=== PATIENT | male | born 1935 | race Caucasian/White ===

== ENCOUNTER 2024-07-17 02:39 | Inpatient (IN) | payer OTHER, SELFPAY ==
[2024-07-16 23:28] VITALS: BP 184/74
--- NOTE | 2024-07-16 23:33 | ED.GENMED ---
History of Present Illness
General
Chief Complaint: Breathing Problem
Source: patient and ambulance crew
Exam Limitations: none
Time Seen by Provider: 07/16/24 23:31
Nursing documentation reviewed up to this point in time: agreed with
History of Present Illness
History of Present Illness:
88-year-old male presents emergency department complaining of shortness of breath, he vomited a piece of broccoli and appeared to aspirate. He was placed on 3 L nasal cannula and transported.
Past History
Past History
ED Past Medical History: HTN, Hypercholesterolemia and Other (dementia)
ED Past Surgical History: None
Social History
Tobacco: Non-smoker
Alcohol: Former
Drug: None
Living: assisted living
Review of Systems
Review of Systems
Allergies reviewed?: Yes
Unable to obtain full review of systems at this time due to: dementia
All Other Systems: Not applicable
Respiratory: Reports cough and trouble breathing
ABD/GI: Reports vomiting
Phy Exam
Physical Exam
Physical Exam:
Physical Exam
General: Moderate respiratory distress, appears uncomfortable, vomit on short
Neck: supple. no meningeal signs. normal posterior pharynx
Heart: s1/s2 regular rate and rhythm, no murmur. equal radial
pulses.
HEENT: Pupils equal round reactive to light, EOMI
Lungs: Moderate respiratory distress. Rhonchi bilaterally
Abdomen: normal bowel sounds. not tender. no CVAT
Neuro: alert and oriented to person. no focal neurological deficits cranial nerves II through XII intact
Skin: no rash
Psychiatric: well kept. interactive and cooperative
Extremities: no edema. no calf tenderness. negative homans. good distal pulses
Scores
Heart Failure Risk
Heart Failure Risk Score: Not Applicable
Course
Orders/Labs/Results
Orders:
Orders
09/11/24 23:31
Cardiac Monitoring- Treatment ONCE
IV Insert/Care/Rem.- Treatment PRN
O2 Therapy [RESP] Stat
Nasal Cannula Liter Flow: 3 LPM
Titrate/Wean O2 to maintain O2 sat greater than (%): 93
Pulse Ox/cont/shift [RESP] Stat
Quantity: 1
07/16/24 23:32
Electrocardiogram (*1) Stat
Reason for Study: Other
Other Reason for Exam: pneumonia
EKG- Treatment ONCE
07/16/24 23:33
CR Chest Portable - 1 View Urgent
Comment:
Reason For Exam: aspiration, short of breath
Reason Study Needs to be Portable: Unable to Transport
07/16/24 23:44
Complete Blood Count/With Diff Urgent
Comprehensive Metabolic Panel Urgent
Lactic Acid Q4H
Comment: CANCEL 2nd LACTIC ACID IF 1st LACTIC ACID IS LESS THAN 2
Blood Culture Urgent
RODRIGO Source: Blood/Venous
Specimen Description:
07/17/24 00:32
Piperacillin/Tazo 4.5 Gram [Zosyn] 4.5 gram in 100 ml IV NOW
07/17/24 00:45
Vancomycin [Vancocin] 2,000 mg 0.9% Sodium Chloride 500 ml [Nss] 500 ml IV NOW
07/17/24 00:54
Blood Culture Routine
RODRIGO Source: Blood/Venous
Specimen Description:
Date Specimen was Collected: 07/17/24
Time Specimen was Collected: 00:53
07/17/24 01:07
Admit/Transfer Patient As Directed
Co-Sign Provider:
Level of Care: Inpatient admission
Assign to:: Telemetry
Physician / Group: Ankur
Diagnosis: Aspiration Pneumonitis / Pneumonia
Reason for Telemetry: Arrhythmia
Date to Stop Telemetry: 07/20/24
Time to Stop Telemetry: 11:00
Reason for Hospitalization: Aspiration Pneumonitis / Pneumonia
Expected length of stay greater than two midnights?: Yes
ELOS- Estimated Length of Stay in days: 3
I certify the patient meets the requirements for IP care: Yes
PRN Pain Medication Management As Directed
May give lesser potent ordered pain med per pt: Yes
preference::
Protocol:: Medication orders for pain may be administered in a
manner that supports deferring to patient preference
when the pt is:
- Requesting an ordered lesser potent pain medication.
Least to most potent pain medications are defined
as: acetaminophen < NSAID < tramadol < opioids
(morphine, oxycodone, hydromorphone).
- Requesting a lesser dose of the same medication IF
ORDERED.
- Requesting a less intrusive route of administration
if both routes are prescribed by the provider (PO <
IV).
07/17/24 01:08
Code Status As Directed
Resuscitation Status: Limited DNR
Limited DNR: -No CPR
07/17/24 02:00
Flush (0.9% Sodium Chloride) [Flush (Nss)] See Dose Instructions IV PER PROTOCOL
07/20/24 11:00
DC Protocol for Telemetry ONCE
Abnormal Lab Results
07/16/24
23:44
WBC 14.6 H 10^3/uL
(4.8-10.8)
RBC 4.20 L 10^6/uL
(4.70-6.10)
Hgb 12.6 L g/dL
(13.0-18.0)
Hct 36.7 L %
(39.0-52.0)
Abs Immat Gran (auto) 0.1 H 10^3/uL
(0-0.05)
Absolute Neuts (auto) 12.6 H 10^3/uL
(1.4-6.5)
Absolute Lymphs (auto) 1.1 L 10^3/uL
(1.2-3.4)
Absolute Monos (auto) 0.8 H 10^3/uL
(0.1-0.6)
Neutrophils % 86.5 H %
(42.2-75.2)
Lymphocytes % 7.3 L %
(20.5-51.1)
Glucose 141 H mg/dl
(70-99)
07/16/24 23:44
07/16/24 23:44
Vital Signs
Initial and Last Documented VS:
Initial Vital Signs
Temp Pulse Resp BP Pulse Ox
98.8 F 72 19 184/74 94
07/16/24 23:28 07/16/24 23:28 07/16/24 23:28 07/16/24 23:28 07/16/24 23:28
Last Documented Vital Signs
Temp Pulse Resp BP Pulse Ox
98.8 F 79 23 146/62 91
07/16/24 23:28 07/17/24 02:00 07/17/24 02:00 07/17/24 02:00 07/17/24 02:00
MDM/Problems Addressed
Differential Diagnosis Includes:
Aspiration pneumonia, hypoxia
MDM/Problems Addressed:
88-year-old male with aspiration pneumonia. Admit to hospitalist.
Chronic conditions affecting care: HTN and Neurological disorder (Dementia)
Acute Exacerbation and/or Progression of Chronic Illness: HTN
*Radiology
Radiology exam reviewed: preliminary read by ED provider (Chest x-ray no acute findings)
*Pulse Oximetry
Patient hypoxic: yes
*EKG
Interpreted by ED Provider?: Yes
EKG Intrepretation Date: 07/16/24
EKG Intrepretation Time: 23:45
Interpretation: abnormal
Comparison EKG: changes noted
Heart Rate: 77
Rate: normal
Rhythm: sinus
[place]: normal axis
Interval: short VT
QRS Pattern: right bundle branch block
Ischemia: non-specific ST changes
*Olive Knocker Interpretation
Rate: normal
Interpretation: normal
Heart Rate: 75
Rhythm: sinus
*Critical Care Note
Total Time (30-74mins, 75-104mins- exclusive of procedures): Not Applicable
Data Reviewed
Further Testing Considered But Not Given:
ct chest not indicated
Patient Management
Social determinants of health affecting care: Living situation
Discussion with other providers: Hospitalist
Escalation/DeEscalation of care consider admission/obs:
admit not indicated
ED Attending Note
-
Portions of this chart may have been created with voice recognition software.� Occasional wrong word or��sound alike� substitutions may have occurred due to the inherent limitations of voice recognition software.
Discharge Plan
Departure
Patient Disposition: Admit
Date of Disposition: 07/17/24
Time of Disposition: 00:31
Admit to: IMU
Presentation/result/management discussed w/ accepting MD/DO: Hospitalist
Patient with high blood pressure during this ER visit?: Yes
Condition: Fair
Discharge Problem:
Aspiration pneumonia due to food (regurgitated)
Prescriptions:
No Action
losartan 50 mg Tablet
50 mg PO DAILY
furosemide 40 mg Tablet
40 mg PO DAILY
acetaminophen [Tylenol Extra Strength] 500 mg Tablet
1,000 mg PO BIDPRN PRN (Reason: mild pain)
acetaminophen [Tylenol Extra Strength] 500 mg Tablet
1,000 mg PO DAILY
glimepiride [Amaryl] 2 mg Tablet
2 mg PO DAILY
tamsulosin 0.4 mg Capsule
0.4 mg PO HS
lidocaine 5 % Adhesive Patch,Medicated
1 patch TOPICAL DAILY
calcium polycarbophil [FiberCon] 625 mg Tablet
625 mg PO HS
povidone-iodine [Betadine Swabsticks] 10 % Swab
1 applic TOPICAL DAILY
lactase [Lactaid] 3,000 unit Tablet
3,000 unit PO BID
divalproex [Depakote Sprinkles] 125 mg Capsule, Delayed Rel Sprinkle
125 mg PO DAILY
divalproex [Depakote Sprinkles] 125 mg Capsule, Delayed Rel Sprinkle
250 mg PO HS
repaglinide [Prandin] 1 mg Tablet
3 mg PO BID
escitalopram oxalate [Lexapro] 10 mg Tablet
10 mg PO HS
senna 8.6 mg Capsule
8.6 mg PO DAILYPRN PRN (Reason: constipation)
Januvia 50 mg Tablet
50 mg PO DAILY
Balmex Adult Care 11.3 % Cream
1 applic TOPICAL BIDPRN PRN (Reason: buttocks, aletha area/inner thighs)
Gold Moraes Medicated Body 0.8 % Powder
1 ea TOPICAL DAILY
Eucerin Advanced Repair Cream
1 applic TOPICAL BID
Referrals:
UNKNOWN - PT DOES,NOT KNOW [Unknown Provider] -
Discharge Date and Time
Discharge Date/Time: 07/17/24 02:29
Print Language: BRITISH
[2024-07-16 23:34] VITALS: BP 184/74
[2024-07-16 23:38] VITALS: BMI 23.1
[2024-07-17] VITALS (11 sets, daily range): BP systolic 112–164; BP diastolic 58–71; BMI 23.0
[2024-07-17 00:02] LABS: % Basophils 0.2 % (0-2); % Eosinophils 0.3 % (0-6); % Immature Granulocytes 0.4 % (0-0.5); % Lymphocytes 7.3 % (20.5-51.1); % Monocytes 5.3 % (1.7-9.3); % Neutrophils 86.5 % (42.2-75.2); Absolute Eosinophils 0.1 10^3/uL (0-0.7); Absolute Immature Granulocytes 0.1 10^3/uL (0-0.05); Absolute Lymphocytes 1.1 10^3/uL (1.2-3.4); Absolute Monocytes 0.8 10^3/uL (0.1-0.6); Absolute Neutrophils 12.6 10^3/uL (1.4-6.5); Hematocrit 36.7 % (39.0-52.0); Hemoglobin 12.6 g/dL (13.0-18.0); Mean Corp Hgb Conc. 34.3 g/dL (33.0-37.0); Mean Corpuscular Volume 87.4 fL (80.0-94.0); Mean Platelet Volume 10.4 fL (7.4-10.4); Nucleated Red Blood Cells % 0 % (-); Platelet Count 283 10^3/uL (130-400); Red Cell Dist. Width 13.2 % (11.5-14.5); White Blood Cell Count 14.6 10^3/uL (4.8-10.8)
[2024-07-17 00:09] LABS: ALT (SGPT) 13 U/L (0-50); AST (SGOT) 19 U/L (17-59); Albumin 4.7 g/dl (3.5-5.0); Alkaline Phosphatase 83 U/L (38-126); Blood Urea Nitrogen 18 mg/dl (9-20); Calcium 9.6 mg/dl (8.4-10.2); Carbon Dioxide 29 mmol/L (22-30); Chloride 101 mmol/L (98-107); Estimated Creatinine Clearance 58 ml/min; Glucose 141 mg/dl (70-99); Potassium 4.2 mmol/L (3.5-5.1); Sodium 143 mmol/L (135-145); Total Bilirubin 0.7 mg/dl (0.2-1.3); Total Protein 7.9 g/dl (6.3-8.2); eGFR > 60.00
[2024-07-17 00:10] LABS: Lactic Acid 1.9 mmol/L (0.7-2.0)
[2024-07-17] MEDS: ZOSYN 100 IV (00:46)
--- NOTE | 2024-07-17 01:10 | HPS.HSE ---
Family Physician
-
Family Physician: Rebecca Henderson
Chief Complaint
-
Cough / Choking
History of Present Illness
Patient is an 88y M with PMH significant for senile dementia, hypertension and history of alcohol use disorder who presents to ED complaining of coughing / choking episode this evening. Patient is confused (as per baseline) and is unable to
relate details leading to his hospitalization. History obtained primarily from his son at the bedside. Per son, staff responded to call at [facility] to find patient coughing / choking in his apartment. He was eating ice cream at the time
staff arrived - though patient himself stated that he had been choking on broccoli. He was SOB and in some distress and was brought to the ED for further evaluation. In the ED, patient is mildly hypoxemic with SpO2 into the 80s on room air. He
has 'moist' cough that is poorly productive.
Son (who is a Speech Therapist) states no significant history of aspiration / dietary restrictions.
Patent has general decline due to dementia. He requires full assistance with all activities / ADLs. He falls about once per week - usually while trying to self-transfer from bed to wheelchair or vice versa.
Medical History
Past Medical History
Past Medical History: Reports Other
Additional Past Medical History:
Alcohol Use Disorder
Senile Dementia
Alcoholic Polyneuropathy
Hypertension
DM-II
BPH
Ambulatory Dysfunction
Lumbar DDD
Non-Melanoma Skin Cancer
Past Surgical History: Reports Other
Additional Past Surgical History:
Lumbar laminectomy x 2
Mohs Surgery
ORIF R Ankle
Social History
Tobacco: Former Smoker
Alcohol: Former
Drug: None
Living: Assisted Living
Family History
Family History: Not pertinent
Allergies / Home Medications
Allergies reflects when Allergies were last updated in [facility].
Home Medications with original date entered in [facility]
Allergy/Medication List:
Allergies
Allergy/AdvReac Type Severity Reaction Status Date / Time
No Known Allergies Allergy Verified 07/16/24 23:38
Home Medications
acetaminophen 500 mg tablet (Tylenol Extra Strength) 1,000 mg PO BIDPRN PRN mild pain 07/16/24
acetaminophen 500 mg tablet (Tylenol Extra Strength) 1,000 mg PO DAILY 07/16/24
calcium polycarbophil 625 mg tablet (FiberCon) 625 mg PO HS 07/16/24
divalproex 125 mg capsule,delayed release sprinkle (Depakote Sprinkles) 125 mg PO DAILY 07/16/24
divalproex 125 mg capsule,delayed release sprinkle (Depakote Sprinkles) 250 mg PO HS 07/16/24
emollient combination no.119 (Eucerin Advanced Repair topical cream) 1 applic topical BID b/l le 07/16/24
escitalopram oxalate 10 mg tablet (Lexapro) 10 mg PO HS 07/16/24
furosemide 40 mg tablet 40 mg PO DAILY 07/16/24
glimepiride 2 mg tablet 2 mg PO DAILY 07/16/24
lactase 3,000 unit tablet (Lactaid) 3,000 unit PO BID 07/16/24
lidocaine 5 % topical patch 1 patch topical DAILY left shoulder 07/16/24
losartan 50 mg tablet 50 mg PO DAILY 07/16/24
menthol 0.8 % topical powder (Gold Moraes Medicated Body) 1 ea topical DAILY upper back rash 07/16/24
povidone-iodine 10 % topical swab (Betadine Swabsticks) 1 applic topical DAILY right lower ankle 07/16/24
repaglinide 1 mg tablet 3 mg PO BID 07/16/24
sennosides 8.6 mg capsule (senna) 8.6 mg PO DAILYPRN PRN constipation 07/16/24
sitagliptin phosphate 50 mg tablet (Januvia) 50 mg PO DAILY 07/16/24
tamsulosin 0.4 mg capsule 0.4 mg PO HS 07/16/24
zinc oxide-vitamin B5-vit E 11.3% topical cream (Balmex Adult Care) 1 applic topical BIDPRN PRN buttocks, aletha area/inner thighs 07/16/24
Review of Systems
-
History Source: Patient and Family
A 12 point ROS was completed and negative except as noted: Yes
Constitutional: Denies Fever or Chills
EENT: Denies Sore Throat
Respiratory: Reports Cough and Trouble Breathing; Denies Hemoptysis
Cardiac: Denies Chest Pain or Palpitations
Abdomen/GI: Denies Abdominal Pain, Nausea, Vomiting or Diarrhea
: Denies Dysuria or Frequency
Musculoskeletal: Denies Joint Pain or Edema
Skin: Reports Other (Wound R ankle.)
Neurological: Denies Dizzy or Headache
Psych: Reports Dementia
Physical Exam
Vital Signs
Vital Signs
Temp Pulse Resp BP Pulse Ox
98.8 F 77 15 163/71 94
07/16/24 23:28 07/17/24 00:30 07/17/24 00:30 07/17/24 00:00 07/17/24 00:30
Physical Exam
General: Other (88y M in mild distress due to cough.)
HEENT: Other (Moist MM. Poor dentition. Moist cough productive of thin, clear mucous.)
Respiratory: Other (Coarse breath sounds predominately over the L base. No wheeze. Poorly effective cough.)
Cardiac: S1/S2, Regular Rhythm and Murmur (II/ LISA)
GI: Soft, Non Tender, Non Distended and Normal Bowel Sounds
Musculoskeletal: No Clubbing, No Cyanosis and No Edema
Skin: Other (Keratoses over the LE - R > L. Wound / rasied skin lesion lateral R ankle with surrounding erythema and mild induration. No active bleeding / discharge.)
Neuro: Awake and Alert; No Oriented
Laboratory Results
-
07/16/24 23:44
07/16/24 23:44
Laboratory Results
Lactic Acid Cancelled 07/17/24 03:45
Total Bilirubin 0.7 mg/dl (0.2-1.3) 07/16/24 23:44
AST 19 U/L (17-59) 07/16/24 23:44
ALT 13 U/L (0-50) 07/16/24 23:44
Alkaline Phosphatase 83 U/L (38-126) 07/16/24 23:44
Impression/Plan
-
A/P: Patient is an 88y M with PMH significant for HTN, DM-II and dementia who presents to ED for evaluation following coughing / choking episode.
Aspiration Pneumonitis +/- Pneumonia
Acute Hypoxemic respiratory Insufficiency secondary to the above
- Admit for further evaluation and treatment.
- Witnessed episode of coughing / choking while eating this evening.
- Hypoxemia in the ED with moist, weak cough and congested throat / voice.
- CXR with ? L base opacity - correlates with coarse BS on exam.
- IV abx with Zosyn for now.
- Aspiration precautions.
- Nebs / supportive care, supplemental O2, etc.
- Formal Speech evaluation.
- Follow fever curve.
- Follow for clinical improvement.
RLE Wound
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
- Wound Care evaluation for local care recommendations.
- On Zosyn as noted above.
- Follow for changes.
Benign Hypertension
- Stable. Hold PO medications acutely.
- Resume once stable for POs.
DM-II
- Stable. Hold PO medications acutely.
- Follow glucose and cover with SSI as needed.
- Update A1C.
BPH
- Stable. Bladder scan protocol.
History of Alcohol Use Disorder
Peripheral Polyneuropathy
Senile Dementia with Mood Disturbance
- Stable. Holding PO meds for now as noted above.
- Resume usual mood stabilizers once OK for PO intake.
- No alcohol in several years now.
DVT Prophylaxis: Subcut heparin
Code Status: ELIESER pan [facility] indicates DNR. With son at bedside, patient states that he would be in favor of intubation if needed - but no CPR in the event of cardiac arrest.
[2024-07-17] MEDS: VANCOCIN 540 MG IV (01:12)
--- NOTE | 2024-07-17 03:00 | PTCARENOTE ---
Patient admitted from ED. Patient AAO x1 which is baseline. Patient on RA. Placed on aspiration precautions with suction at bedside, performing PRN. Patient with frequent cough and thick, white sputum. HOB is elevated. Admission completed with
patient's son at bedside. Bed alarm is on. Patient has call rolle within reach.
[2024-07-17] MEDS: ZOSYN 50 IV ×3 (06:20→17:32)
[2024-07-17 06:27] LABS: Glucose - Point of Care 128 mg/dl (70-99)
[2024-07-17 07:57] LABS: Hematocrit 32.5 % (39.0-52.0); Hemoglobin 11.1 g/dL (13.0-18.0); Mean Corp Hgb Conc. 34.2 g/dL (33.0-37.0); Mean Corpuscular Hgb 30.9 pg (27.0-31.0); Mean Corpuscular Volume 90.5 fL (80.0-94.0); Mean Platelet Volume 10.6 fL (7.4-10.4); Platelet Count 219 10^3/uL (130-400); Red Blood Cell Count 3.59 10^6/uL (4.70-6.10); Red Cell Dist. Width 12.9 % (11.5-14.5); White Blood Cell Count 20.4 10^3/uL (4.8-10.8)
[2024-07-17 08:21] LABS: Blood Urea Nitrogen 17 mg/dl (9-20); Calcium 8.8 mg/dl (8.4-10.2); Carbon Dioxide 26 mmol/L (22-30); Chloride 105 mmol/L (98-107); Estimated Creatinine Clearance 64 ml/min; Glucose 128 mg/dl (70-99); Sodium 142 mmol/L (135-145); eGFR > 60.00
[2024-07-17] MEDS: DUONEB 3 ML INH ×4 (08:27→19:45)
[2024-07-17] MEDS: HEPARIN SC (08:55)
--- NOTE | 2024-07-17 09:00 | PTOTSP ---
Speech Language Pathology
Pt seen for clinical bedside swallow evaluation. Sitting upright upon arrival. Wet voice noted at rest, unable to clear with a cued cough. Set pt up to brush teeth. CLAIMS REPRESENTATIVE aided to achieve appropriate friction to clear bacteria from oral cavity.
With swish and spit of water post brushing, significant coughing episode noted with need for suctioning. After this, pt coughed up large amount of thick gillette secretions, which were suctioned from oral cavity. Clear vocal quality then noted.
Trialed ice chip x2 with immediate wet voice and severe coughing. Further P.O. trials deferred. Pt currently at high risk for aspiration.
Recommend:
(1) Strict NPO
(2) No oral meds
(3) Oral care 4x/day with suctioning as needed
(4) Not appropriate for Aspiration Risk Hydration Protocol (ARHP) at this time given intolerance of ice chips this date
(5) VSE when improvement noted (not yet appropriate)
(6) CLAIMS REPRESENTATIVE to continue to follow
[2024-07-17 09:19] LABS: Glycohemoglobin (HgbA1c) 6.2 % (4.0-5.6)
--- NOTE | 2024-07-17 10:33 | W.PN.HOSP.TC ---
Addendum entered and electronically signed by Leda Woodruff MD 07/17/24 16:00:
I saw and evaluated the patient independently. I reviewed the resident�s note and agree with findings and plan as documented by Dr. Larson.
GENERAL: chronically ill appearing male in no apparent distress
HEENT: NC/AT--thick secretions
HEART: regular rate and rhythm, +S1, +S2
LUNGS : clear to auscultation bilaterally
ABDOM: soft, nontender, nondistended, + bowel sounds
EXT: no cyanosis, clubbing, or edema
NEUROLOGIC: apparent dementia
SKIN: wound on right lower rivas (pics in chart)--raised area with surrounding back eschar and flaky skin
Aspiration pneumonitis +/- aspiration pneumonia--appears to be an acute problem (spoke with son at bedside who is a speech path at [employer])--patient not stable enough for video swallow--appreciate speech evaluation, continue ongoing evaluation, may
need VSE but unable to have today due to the thick secretions--patient does have leukocytosis of 20,000--continue Zosyn--chest x-ray without any florid infiltrates--also discussed with son possibility of the acute event which has worsened this issue
or cause this issue (i.e. stroke)--patient moved to IMU this morning 07/17/2024 for acute episode of desaturation, agitation with concern for needing deeper suctioning, appreciate pulmonary input--family wishes to defer on CAT scan or workup in that
regard at this time--if it is determined that patient is not safe for further oral intake and would need alternative means of feeding; would need further goals of care discussion with patient's son and family
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
care--already on Zosyn which may or may not be of benefit
Essential hypertension--Holding p.o. meds, will transition to IV
Type II diabetes mellitus--hold medications for now--continue sliding scale insulin--hemoglobin A1c 6.2
BPH--Stable--Bladder scan protocol
Senile dementia with mood disturbance--Patient became combative today, confused not oriented--much calmer now that son is at bedside
DVT prophylaxis: Subcu heparin
CODE STATUS: POLST fron NH indicates DNR. With son at bedside, patient states that he would be in favor of intubation if needed - but no CPR in the event of cardiac arrest.
Original Note:
Today's Communication/Plan
-
Transferred to ICU
Suction secretions, protecting airway
Assessment / Plan
Assessment / Plan
Assessment:
88 male past medical history dementia, hypertension, diabetes presented for evaluation of coughing/choking episode
Plan:
#Aspiration pneumonitis +/- aspiration pneumonia
Potentially aspiration pneumonia
Patient's WBC count trending upwards 20.4 this morning
Chest x-ray in the emergency department demonstrated bilateral minimal bibasilar opacities, likely representing subsegmental atelectasis
Patient reports coughing
Speech evaluated the patient and determined that he was gurgling on secretions, with significant coughing episodes they recommended patient be n.p.o.
Patient n.p.o.
Transition meds to IV if possible
Not ready for VSE will touch base with son who is also a speech therapist
Supportive care with supplemental O2, nebs
Aspiration precautions
IV Zosyn for now, day 2
Speech following
Follow fever curve
Follow WBC trend
#Right lower extremity wound
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
Wound care evaluation
Continue Zosyn
#Benign hypertension
Stable
Holding p.o. meds, will transition to IV
#Diabetes type 2
A1c 6.2
Transition meds to IV
Cover with sliding scale as needed
#BPH
Stable
Bladder scan protocol
#Senile dementia with mood disturbance
Patient combative today, confused not oriented
Patient refusing suctioning treatments, actively coughing and stating he wants to leave
Patient transferred to ICU
Will attempt to redirect patient, restraints and sedatives will be used as last resort
DVT prophylaxis: Subcu heparin
CODE STATUS: ELIESER fron NH indicates DNR. With son at bedside, patient states that he would be in favor of intubation if needed - but no CPR in the event of cardiac arrest.
Diet: N.p.o.
Anticipated Discharge: > 48 hours
Subjective/Interval History
-
Date of Service: July 17, 2024
Nurse reports episodes of agitation overnight
Patient acutely agitated this morning, requiring ICU transfer
Patient not protecting airway, requiring suction and not letting nurse to suction
Objective Data
-
Labs:
Laboratory Results
07/16/24 07/17/24
23:44 07:38
WBC 14.6 H 20.4 H
Hgb 12.6 L 11.1 L
Hct 36.7 L 32.5 L
Plt Count 283 219 D
Sodium 143 142
Potassium 4.2 4.0
Chloride 101 105
Carbon Dioxide 29 26
BUN 18 17
Creatinine 1.0 0.9
Glucose 141 H 128 H
Calcium 9.6 8.8
Total Bilirubin 0.7
AST 19
ALT 13
Alkaline Phosphatase 83
Vital Signs:
Vital Signs
Temp Pulse Resp BP Pulse Ox
98.4 F 64 16 128/66 98
07/17/24 07:45 07/17/24 08:28 07/17/24 08:28 07/17/24 07:45 07/17/24 08:28
Review of Systems
-
Unable to obtain full review of systems at this time due to: Dementia
Physical Exam
-
General: Respiratory Distress and Conversant
Respiratory: Other (Unable to auscultate due to receiving breathing treatment at time)
Cardiac: Regular Rhythm, S1/S2 and Murmur
GI: Soft, Nontender, Nondistended and Normal Bowel Sounds
Skin: Warm and Dry
Neuro: Awake; Negative Alert, Oriented or AO x 3
Psych: Calm, Agitated and Apparent Dementia; Negative Intact Judgement/Insight
Data Reviewed
-
Labs: Labs Reviewed by me and Discussed with Physician
--- NOTE | 2024-07-17 10:54 | CM ---
Call received from Maria E at [facility]. 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
Romaine was admitted early this am; admission dx aspiration pneumonia. CM will attempt to complete assessment with patient today.
--- NOTE | 2024-07-17 11:06 | CM ---
Addendum entered by Zohra Alcaraz 07/17/24 18:00:
Romaine was transferred to IMU today due to probable aspiration pneumonia/pneumonitis. Code status has been discussed. Per son he would be agreeable to intubation if needed, but no CPR.
CM will continue to follow.
Original Note:
Romaine is a resident of [facility], currently living in the assisted living area of the facility. He is non-ambulatory, uses a w/c and requires assist of 2 for transfers, has poor safety awareness, is impulsive with frequent falls. He needs set
up and assistance with meals.
Plan: CM to follow to coordinate return to AL at [facility] when medically ready.
--- NOTE | 2024-07-17 11:27 | CON.PUL ---
Consultation
Consultation Request
Date/Time Consultation Requested: 07/17/24
Date/Time Consultation Performed: 07/17/24
Performing Provider: Shahab
Reason for Consultation: Aspiration
Medical History
-
History of Present Illness:
Patient is an 88-year-old male with previous history of alcohol use disorder, dementia, hypertension, diabetes, ambulatory dysfunction presenting to ER for coughing, choking episode day prior to admission. Son provides most of the history and
states that patient has had difficulty with food in the past few weeks. He was found to be short of breath and brought in in distress, notably mildly hypoxemic with saturation in the 80s on room air. He has history of falls at facility as well.
Requires full assistance with all activities and ADLs. Admitted 07/16/2024, this a.m. developed acute aspiration event with hypoxemia. We are consulted for evaluation.
Past Medical History
Past Medical History: Other (see list below)
Social History
Tobacco: Non-smoker
Alcohol: Former
Drug: None
Family History
Family History: Reviewed & Not Pertinent
Allergies / Home Medications
Allergies
Allergy/AdvReac Type Severity Reaction Status Date / Time
No Known Allergies Allergy Verified 07/16/24 23:38
Home Medications
�Medication �Instructions �Recorded �Confirmed �Last Taken �Type
acetaminophen 500 mg tablet 1,000 mg PO BIDPRN PRN mild pain 07/16/24 07/16/24 Unknown History
(Tylenol Extra Strength)
acetaminophen 500 mg tablet 1,000 mg PO DAILY 07/16/24 07/16/24 Unknown History
(Tylenol Extra Strength)
calcium polycarbophil 625 mg 625 mg PO HS 07/16/24 07/16/24 Unknown History
tablet (FiberCon)
divalproex 125 mg capsule,delayed 125 mg PO DAILY 07/16/24 07/16/24 Unknown History
release sprinkle (Depakote
Sprinkles)
divalproex 125 mg capsule,delayed 250 mg PO HS 07/16/24 07/16/24 Unknown History
release sprinkle (Depakote
Sprinkles)
emollient combination no.119 1 applic topical BID b/l le 07/16/24 07/16/24 Unknown History
(Eucerin Advanced Repair topical
cream)
escitalopram oxalate 10 mg tablet 10 mg PO HS 07/16/24 07/16/24 Unknown History
(Lexapro)
furosemide 40 mg tablet 40 mg PO DAILY 07/16/24 07/16/24 Unknown History
glimepiride 2 mg tablet 2 mg PO DAILY 07/16/24 07/16/24 Unknown History
lactase 3,000 unit tablet (Lactaid) 3,000 unit PO BID 07/16/24 07/16/24 Unknown History
lidocaine 5 % topical patch 1 patch topical DAILY left shoulder 07/16/24 07/16/24 Unknown History
losartan 50 mg tablet 50 mg PO DAILY 07/16/24 07/16/24 Unknown History
menthol 0.8 % topical powder (Gold 1 ea topical DAILY upper back rash 07/16/24 07/16/24 Unknown History
Moraes Medicated Body)
povidone-iodine 10 % topical swab 1 applic topical DAILY right lower 07/16/24 07/16/24 Unknown History
(Betadine Swabsticks) ankle
repaglinide 1 mg tablet 3 mg PO BID 07/16/24 07/16/24 Unknown History
sennosides 8.6 mg capsule (senna) 8.6 mg PO DAILYPRN PRN constipation 07/16/24 07/16/24 Unknown History
sitagliptin phosphate 50 mg tablet 50 mg PO DAILY 07/16/24 07/16/24 Unknown History
(Januvia)
tamsulosin 0.4 mg capsule 0.4 mg PO HS 07/16/24 07/16/24 Unknown History
zinc oxide-vitamin B5-vit E 11.3% 1 applic topical BIDPRN PRN 07/16/24 07/16/24 Unknown History
topical cream (Balmex Adult Care) buttocks, aletha area/inner thighs
Review of Systems
-
History Source: Patient
All other systems: Negative unless noted
Vitals / Labs / Diagnostic Testing
Vital Signs
Temp Pulse Resp BP Pulse Ox
98.4 F 64 16 128/66 98
07/17/24 07:45 07/17/24 08:28 07/17/24 08:28 07/17/24 07:45 07/17/24 08:28
Lab Data
07/17/24 07:38
07/17/24 07:38
Diagnostic Testing:
Physical Exam
-
HEENT: Normocephalic, Anicteric and Moist Mucous Membranes
Cardiovascular: S1/S2 and Regular Rhythm
Respiratory: Wheeze (bilateral, slight), Rales and Non-Labored Respirations
GI: Soft, Non Distended and Non Tender
Neurology: Awake, Alert, Oriented (to self, confused on events), No Motor Deficits and Tremors
Skin: Warm, Dry and Good Color
General: Comfortable and Other (NAD)
Assessment
-
Patient is an 88-year-old male with previous history of alcohol use disorder, dementia, hypertension, diabetes, ambulatory dysfunction presenting to ER for coughing, choking episode day prior to admission. Son provides most of the history and
states that patient has had difficulty with food in the past few weeks. He was found to be short of breath and brought in in distress, notably mildly hypoxemic with saturation in the 80s on room air. He has history of falls at facility as well.
Requires full assistance with all activities and ADLs. Admitted 07/16/2024, this a.m. developed acute aspiration event with hypoxemia. We are consulted for evaluation.
Brief hypoxemic event, resolved
Acute aspiration
Choking on food
Leukocytosis
Conditions present prior to admission
Alcohol Use Disorder
Senile Dementia
Alcoholic Polyneuropathy
Hypertension
DM-II
BPH
Ambulatory Dysfunction
Lumbar DDD
Non-Melanoma Skin Cancer
Lumbar laminectomy x 2
Mohs Surgery
ORIF R Ankle
Former smoker
Plan
Hypoxemia noted on arrival, O2 gómez 80s in ER
Currently saturating >90% on RA
This is likely due to acute events, resolving quickly
Prior history of lung disease is not noted though he was a former smoker
No prior PFTs for review
CXR/CT obtained indicating NAD, repeat negative
Likely just aspiration pneumonitis, but placed on antibiotics empirically given leukocytosis
Wheezing on exam, we will add IV steroids
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
Speech eval ongoing
Would maintain strict NPO for now
VSE planning when stable
HTN history, resumed on home meds
No prior ECHO results available for review
Difficult situation if not appropriate for PO status
He has baseline history of dementia, ambulatory dysfunction with multiple falls
He already requires full assist for all of his ADLs
He is currently limited DNR, would need to discuss with family ultimate goals of care
Updated son at bedside
Transfer initiated to IMU
We will follow
Diagnostic Data
Chest X-Ray: 07/17/24- Slightly improved minimal bibasilar opacification most likely representing resolving subsegmental atelectasis.
07/16/24- Suspected minimal bibasilar opacity most likely representing subsegmental atelectasis.
CT Scan:
Echo:
PFT's:
Reports and relevant images were personally reviewed.
Total time spent on this consultation __75__ includes review of history, physical exam, medications, laboratory data, personal review of imaging, extensive review of outpatient records, discussion with care team and respiratory therapy.
--- NOTE | 2024-07-17 12:57 | PTCARENOTE ---
Tfr' d pt to IMU, LEROY guido report.
[2024-07-17 13:08] LABS: Glucose - Point of Care 121 mg/dl (70-99)
--- NOTE | 2024-07-17 13:41 | PTOTSP ---
Orders recieved, chart reviewed. Spoke with RN this AM and patient was unavailable as he was working with speech at the time.
Patient has now been transferred to IMU and PT/OT orders were not continued upon transfer.
PT/OT will require re-start orders when patient is medically appropriate for evaluation.
--- NOTE | 2024-07-17 13:53 | WOUNDNOTE ---
RIGHT LOWER LEG WOUND
[2024-07-17] MEDS: DECADRON 4 MG IV (14:10)
--- NOTE | 2024-07-17 14:40 | WOUNDNOTE ---
[facility] RN note: Patient admitted with possible pneumonia
See H&P for complete history.
PMH: Dementia, HTN, aspiration, diabetes, constipation, fractures, alcohol use disorder
Wound Location and type/assessment: Patient admitted with right LE ankle wound. The wound is raised and pink, with some yellow fibrin. The surrounding skin has black and yellow dry, scaly skin. No odor and patient denies pain. Hospitalist observed
wound during assessment. Son was present and stated wound has been there for 'months.'
Appetite: Patient is currently NPO.
Pressure redistribution devices in place: Centrella Max Air
Plan: Local wound orders confirmed with hospitalist. Spoke to son about seeing batch plant operator for right leg wound after discharge. Spoke to RN Joya who will contact [facility] RN for any PI of buttocks/sacrum. Patient recovering from agitated episode
with transfer for IMU so decision was made to wait to assess buttocks/sacrum. Heels intact and off-loaded on pillows. Will confirm orders with hospitalist and update nurse.
Updated care plan and will follow as needed.
Note to case management of equipment requested for discharge:
Recommend follow up at wound care center upon discharge.
[2024-07-17 17:33] LABS: Glucose - Point of Care 143 mg/dl (70-99)
--- NOTE | 2024-07-17 17:47 | PTCARENOTE ---
Received patient from [facility] from LEROY Harp. Patient is orientated to himself and can be confused at times. VS stable. Son was at the bedside for most of the day. Patient is NPO due to aspiration risk. Call rolle within reach. Continuing to monitor.
[2024-07-17] MEDS: NOVOLOG FLEXPEN-LOW RESISTANCE SC (18:36)
[2024-07-17 21:42] LABS: Glucose - Point of Care 201 mg/dl (70-99)
[2024-07-17] MEDS: HEPARIN 5000 UNITS SC (22:37)
[2024-07-18] VITALS (15 sets, daily range): BP systolic 120–178; BP diastolic 48–78; PULSE 65–69; O2SAT 96–97
[2024-07-18] MEDS: ZOSYN 50 IV ×5 (00:13→23:52)
[2024-07-18] MEDS: NOVOLOG FLEXPEN-LOW RESISTANCE 1 UNITS SC ×2 (00:21→11:59)
[2024-07-18] MEDS: NOVOLOG FLEXPEN-LOW RESISTANCE SC ×3 (00:21→18:06)
[2024-07-18 00:25] LABS: Glucose - Point of Care 170 mg/dl (70-99)
[2024-07-18] MEDS: DECADRON 4 MG IV (01:09)
[2024-07-18] MEDS: TRANSDERM-SCOP 1 PATCH TRANSDERM (01:09)
--- NOTE | 2024-07-18 02:27 | PTCARENOTE ---
Pt having copious secretions repeatedly needing suction, wet gurgle voice sounding almost underwater. When entering room Pt look was a panic, suction done head of bed up emotional support given. Ky Moss Gatherer made aware of secretions, scopolamine patch
given for ky. Pt call rolle with in reach, bed alarm on. Assessment care and vitals as charted.
[2024-07-18 05:04] LABS: Hematocrit 31.1 % (39.0-52.0); Hemoglobin 10.5 g/dL (13.0-18.0); Mean Corp Hgb Conc. 33.8 g/dL (33.0-37.0); Mean Corpuscular Hgb 29.8 pg (27.0-31.0); Mean Corpuscular Volume 88.4 fL (80.0-94.0); Mean Platelet Volume 10.9 fL (7.4-10.4); Platelet Count 230 10^3/uL (130-400); Red Blood Cell Count 3.52 10^6/uL (4.70-6.10); Red Cell Dist. Width 13.1 % (11.5-14.5); White Blood Cell Count 11.6 10^3/uL (4.8-10.8)
[2024-07-18 05:24] LABS: ALT (SGPT) 15 U/L (0-50); AST (SGOT) 21 U/L (17-59); Albumin 3.9 g/dl (3.5-5.0); Alkaline Phosphatase 61 U/L (38-126); Blood Urea Nitrogen 18 mg/dl (9-20); Carbon Dioxide 25 mmol/L (22-30); Chloride 106 mmol/L (98-107); Estimated Creatinine Clearance 72 ml/min; Glucose 164 mg/dl (70-99); Potassium 3.9 mmol/L (3.5-5.1); Sodium 143 mmol/L (135-145); Total Bilirubin 0.9 mg/dl (0.2-1.3); Total Protein 6.8 g/dl (6.3-8.2); eGFR > 60.00
[2024-07-18 05:38] LABS: Glucose - Point of Care 125 mg/dl (70-99)
[2024-07-18] MEDS: DUONEB 3 ML INH ×4 (07:20→20:39)
--- NOTE | 2024-07-18 08:45 | W.PN.PUL3 ---
Today's Communication / Plan
-
Improved clinically, stable on RA
VSE today, remains NPO
Stop IV steroids, no taper
Likely can stop abx
PT/OT
Transfer back to floors
GOC discussions with son if VSE indicates not safe for PO trials
No further recs from our perspective, will sign off. Please call with questions
Assessment
-
Patient is an 88-year-old male with previous history of alcohol use disorder, dementia, hypertension, diabetes, ambulatory dysfunction presenting to ER for coughing, choking episode day prior to admission. Son provides most of the history and
states that patient has had difficulty with food in the past few weeks. He was found to be short of breath and brought in in distress, notably mildly hypoxemic with saturation in the 80s on room air. He has history of falls at facility as well.
Requires full assistance with all activities and ADLs. Admitted 07/16/2024, this a.m. developed acute aspiration event with hypoxemia. We are consulted for evaluation.
Brief hypoxemic event, resolved
Acute aspiration
Choking on food
Leukocytosis
Conditions present prior to admission
Alcohol Use Disorder
Senile Dementia
Alcoholic Polyneuropathy
Hypertension
DM-II
BPH
Ambulatory Dysfunction
Lumbar DDD
Non-Melanoma Skin Cancer
Lumbar laminectomy x 2
Mohs Surgery
ORIF R Ankle
Former smoker
Plan
Hypoxemia noted on arrival, O2 gómez 80s in ER
Currently saturating >90% on RA
This is likely due to acute events, resolving quickly
Prior history of lung disease is not noted though he was a former smoker
No prior PFTs for review
CXR/CT obtained indicating NAD, repeat negative
Likely just aspiration pneumonitis, but placed on antibiotics empirically given leukocytosis
No longer wheezing, stopped IV steroids, no taper
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
Speech eval ongoing
Would maintain strict NPO for now
VSE planning today
HTN history, resumed on home meds
No prior ECHO results available for review
Difficult situation if not appropriate for PO status
He has baseline history of dementia, ambulatory dysfunction with multiple falls
He already requires full assist for all of his ADLs
He is currently limited DNR, would need to discuss with family ultimate goals of care
Diagnostic Data
Chest X-Ray: 07/17/24- Slightly improved minimal bibasilar opacification most likely representing resolving subsegmental atelectasis.
07/16/24- Suspected minimal bibasilar opacity most likely representing subsegmental atelectasis.
CT Scan:
Echo:
PFT's:
Reports and relevant images were personally reviewed.
Total time spent on this encounter __51__ includes review of history, physical exam, medications, laboratory data, personal review of imaging, extensive review of outpatient records, discussion with care team and respiratory therapy.
Subjective Data
-
Date of Service:
Date of Service: July 18, 2024
Chief Complaint: Pulmonary Follow Up
Subjective:
No new events, stable on RA
No new complaints
Objective Data
Data Reviewed
Vital Signs / I&O / Oxygen:
Vital Signs
Temp Pulse Resp BP Pulse Ox
98.1 F 59 20 178/64 95
07/18/24 07:00 07/18/24 07:22 07/18/24 07:22 07/18/24 06:03 07/18/24 07:22
Intake and Output
07/17/24 07/18/24 07/19/24
06:59 06:59 06:59
Intake Total 210 / 210
Balance 210 / 210
SaO2 95
Nasal Cannula flow liters per 2
minute
Physical Exam
General: Comfortable and Other (NAD, deconditioned appearing)
HEENT: Normocephalic, Anicteric and Moist Mucous Membranes
Cardiovascular: S1-S2 and Regular Rhythm
Respiratory: Rhonchi and Non-Labored Respirations
GI: Soft, Non Distended and Non Tender
Neurology: Awake, Alert, No Motor Deficits and Other (confused at baseline)
Skin: Warm, Dry and Good Color
Labs/Micro/Reports
Lab Data
07/18/24 04:46
07/18/24 04:46
Microbiology
07/17/24 06:43 Nose MRSA Screen - Final
No Methicillin Resistant Staphylococcus aureus isolated.
07/17/24 00:54 Blood/Venous Blood Culture - Preliminary
No Growth in 24 hours- Final report to follow
07/16/24 23:44 Blood/Venous Blood Culture - Preliminary
No Growth in 24 hours- Final report to follow
--- NOTE | 2024-07-18 09:35 | PTOTSP ---
Speech Language Pathology
Pt seen for dysphagia tx. No wet vocal quality noted at rest. Trialed ice chips, thin liquid via cup x1, thin liquid via straw x1, and tsp of puree. No oral difficulty noted with minimal trials provided. Pt endorsed some pharyngeal resdue with
puree. Brief cough with thin liquids via cup with pt bringing up thick sputum, which was suctioned from oral cavity. With thin liquid via single straw sip, significantly prolonged, severe coughing episode noted with pt color change to red and Sp02
to 86% prior to expectorating copious amounts of mucous, which were suctioned by DECORATING INSTRUCTOR. Unsure if related to aspiration or loosening of secretions in pharynx.
Recommend:
(1) VSE
(2) Continue strict NPO pending VSE
(3) Non-oral meds
(4) Hold Aspiration Risk Hydration Protocol (ARHP) pending VSE
(5) DECORATING INSTRUCTOR to continue to follow
[2024-07-18] MEDS: HEPARIN 5000 UNITS SC (10:04)
[2024-07-18] MEDS: APRESOLINE 5 MG IV (10:05)
[2024-07-18 11:47] LABS: Glucose - Point of Care 150 mg/dl (70-99)
--- NOTE | 2024-07-18 13:18 | CM ---
Patient from [facility] with Hx dementia with Dx Aspiration pneumonitis/aspiration pneumonia, Chronic nonhealing Right lower extremity wound. Room air. Receiving IV Decadron, IV Zosyn. PT; requires assist of 2,
recommend HH. OT; requires assist of 2, recommend skilled rehab. ST - follow up VSE today.
Met with son Roosevelt, who works at [employer] as Speech Therapist; he and his brother Nicolas are both POA. Discussed [facility] for rehab and he agrees. He is aware that the patient is not ready for d/c today. Informed son that CM spoke with
Maria E in [facility] at [facility] about his dad and will make referral for SNF.
Spoke with Maria E, [facility]; provided clinical update. SNF referral placed. Will need [facility] for insurance auth.
Plan follow up with [facility] for acceptance.
--- NOTE | 2024-07-18 14:00 | PTOTSP ---
Speech Language Pathology
VIDEOFLUOROSCOPIC SWALLOWING EXAMINATION (VSE) completed. Mild oral and mod pharyngeal dysphagia noted. Penetration/aspiration noted during the swallow. Thin liquids via tsp resulted in penetration to the level of the vocal folds (PAS 5) with
questionable trace silent aspiration (PAS 8). Thin liquids via cup resulted in penetration to the level of the vocal folds. Moderately thick liquids via tsp and puree resulted in silent aspiration.
Of most concern though, was significant esophageal backflow into pharynx, which resulted in significant aspiration of backflow. This was first noted after only 1 tsp and 1 cup sip of thin liquids. Esophageal sweep demonstrated residue. Only 1
spontaneous cough noted during duration of study. Cued cough was ineffective. Pt is at a high risk for aspiration both during the swallow and following the swallow with backflow from esophagus.
Spoke with son, Roosevelt, who is SENIOR ELECTRICAL PROJECT MANAGER at [employer], regarding findings. Roosevelt to discuss with family members, but will likely choose P.O. despite risks given fact that this is likely a chronic issue, and pt has never had PNA prior to current aspiration
pneumonitis. Roosevelt agreeable to GI consult, and was questioning a reflux medication.
Recommend:
(1) NPO
(2) Discussion regarding GOC
(3) Consider GI consult
(4) Oral care 4x/day with suctioning as needed
(5) Allow ice chips per Aspiration Risk Hydration Protocol (ARHP) pending family decision
(6) SENIOR ELECTRICAL PROJECT MANAGER to continue to follow
--- NOTE | 2024-07-18 14:08 | PTCARENOTE ---
Patients heart rate dropped into the 40s with PVCs at times. Patient not able to verbalize if he is having pain. EKG completed and notified to Dr. Woodruff. Approved for transport down for video swallow on telemetry.
--- NOTE | 2024-07-18 14:32 | W.PN.HOSP.TC ---
Addendum entered and electronically signed by Leda Woodruff MD 07/18/24 15:26:
I saw and evaluated the patient independently. I reviewed the resident�s note and agree with findings and plan as documented by Dr. Larson.
GENERAL: chronically ill appearing male in no apparent distress
HEENT: NC/AT--thick secretions
HEART: regular rate and rhythm, +S1, +S2
LUNGS : clear to auscultation bilaterally
ABDOM: soft, nontender, nondistended, + bowel sounds
EXT: no cyanosis, clubbing, or edema
NEUROLOGIC: apparent dementia
SKIN: wound on right lower rivas (pics in chart)--raised area with surrounding back eschar and flaky skin
Aspiration pneumonitis +/- aspiration pneumonia--appears to be an acute problem? (spoke with son at bedside who is a speech path at [employer])--had video swallow today which shows aspiration with all textures, --appreciate speech evaluation--patient does
have leukocytosis of 20,000, on Zosyn, day 3--chest x-ray without any florid infiltrates--discussed with son possibility of the acute event which has worsened this issue or cause this issue (i.e. stroke)--apprec pulm input--family wishes to defer on
CAT scan or workup in that regard at this time-- will need further goals of care discussion with patient's son and family
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
care--already on Zosyn which may or may not be of benefit
Essential hypertension--Holding p.o. meds, will transition to IV
Type II diabetes mellitus--hold medications for now--continue sliding scale insulin--hemoglobin A1c 6.2
BPH--Stable--Bladder scan protocol
Senile dementia with mood disturbance--Patient became combative today, confused not oriented--much calmer now that son is at bedside
DVT prophylaxis: Subcu heparin
CODE STATUS: POLST fron NH indicates DNR. With son at bedside, patient states that he would be in favor of intubation if needed - but no CPR in the event of cardiac arrest.
Original Note:
Today's Communication/Plan
-
Downgrade patient from IMU to telemetry
Continue antibiotics, Zosyn day 3
Assessment / Plan
Assessment / Plan
Assessment:
88 male past medical history dementia, hypertension, diabetes presented for evaluation of coughing/choking episode
Plan:
# Aspiration pneumonitis +/- aspiration pneumonia
Potentially aspiration pneumonia
Patient's WBC downtrending but still elevated, 11.6 today was 20.4 yesterday
Chest x-ray in the emergency department demonstrated bilateral minimal bibasilar opacities, likely representing subsegmental atelectasis
Repeat chest x-ray demonstrated improving bilateral bibasilar opacities
Speech evaluated the patient and determined that he was gurgling on secretions, with significant coughing episodes
Patient n.p.o.
Meds transition to IV or rectal as appropriate
Supportive care with supplemental O2, nebs, suctioning
Aspiration precautions
IV Zosyn for now, day 3
Speech following
VSE performed today
Goals of care discussion with son if VSE indicates not safe for p.o. trials
Follow fever curve
Follow WBC trend
Pulmonology consult
#Right lower extremity wound
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
Wound care evaluation
Received 3 days IV Zosyn
#Benign hypertension
Stable
Holding p.o. meds, will transition to IV where appropriate
IV hydralazine for breakthrough hypertension
#Diabetes type 2
A1c 6.2
Transition meds to IV
Cover with sliding scale as needed
#BPH
Stable
Bladder scan protocol
#Senile dementia with mood disturbance
Patient combative today, confused not oriented
Patient refusing suctioning treatments, actively coughing and stating he wants to leave
Patient transferred to ICU
Will attempt to redirect patient, restraints and sedatives will be used as last resort
DVT prophylaxis: Subcu heparin
CODE STATUS: POLST fron NH indicates DNR. With son at bedside, patient states that he would be in favor of intubation if needed - but no CPR in the event of cardiac arrest.
Diet: N.p.o.
Anticipated Discharge: > 48 hours
Subjective/Interval History
-
Date of Service: July 18, 2024
Nurse reports episodes of intermittent agitation overnight
Patient downgraded from IMU to telemetry
Objective Data
-
Labs:
Laboratory Results
07/18/24
04:46
WBC 11.6 H
Hgb 10.5 L
Hct 31.1 L
Plt Count 230
Sodium 143
Potassium 3.9
Chloride 106
Carbon Dioxide 25
BUN 18
Creatinine 0.8
Glucose 164 H
Calcium 9.0
Total Bilirubin 0.9
AST 21
ALT 15
Alkaline Phosphatase 61
Vital Signs:
Vital Signs
Temp Pulse Resp BP Pulse Ox
97.4 F 60 16 135/60 97
07/18/24 11:00 07/18/24 12:00 07/18/24 12:00 07/18/24 12:00 07/18/24 14:15
I&O
07/17/24 07/18/24 07/19/24
06:59 06:59 06:59
Intake Total 210 / 210 0 / 0
Balance 210 / 210 0 / 0
Review of Systems
-
Unable to obtain full review of systems at this time due to: Dementia
Physical Exam
-
General: Appears in Distress and Appears Chronically Ill
Respiratory: Rhonchi (Anterior) and Other (Poor respiratory effort, coughing)
Cardiac: Regular Rhythm and S1/S2
[2024-07-18] MEDS: DECADRON IV (15:16)
--- NOTE | 2024-07-18 15:59 | PTCARENOTE ---
Patient s/p video swallow. Oral care provided with suction. Patient and family educated about plan of care. Report given to Jose HARPER for transfer to telemetry room 333.
--- NOTE | 2024-07-18 17:27 | W.PN.UPDATE ---
Addendum entered and electronically signed by Leda Woodruff MD 07/18/24 18:12:
Agree with documentation as outlined. GI will offer opinion over the weekend. Case management can start discussions regarding hospice over the weekend if time permits. If family chooses hospice, formal consult will be placed with case management.
Original Note:
Update Note
Progress Note Update
Extensive goals of care discussion was had with family present, both sons and sister were present, either in person or on phone during discussion. Goals of care discussion was led by Dr. Woodruff and I myself was present throughout discussion.
Goals of care were discussed with children and the plan for right now is to allow for Romaine to enjoy comfort feeding for the time being. However he is not on hospice, and a decision has not been made regarding hospice versus palliative care.
Family would like GIs input and case management input regarding hospice and palliative care. GI will evaluate the patient tomorrow and this conversation will be reopened on Sunday regarding which direction they would like to pursue. As for now
patient will be started on a IDDSI 4 pur�ed soft food diet with level 0 liquids, thin comfort feeding diet. Family is aware there is risk of aspiration, choking, pneumonia or pneumonitis. Family is okay with these risks and still agreed to pursue
the comfort feeding diet. Patient's son is a speech therapist and understands these risks extensively well. Goals of care discussion will be reopened on Sunday and a final decision will be made regarding hospice versus palliative care for Mr.
Littig.
[2024-07-18 17:51] LABS: Glucose - Point of Care 138 mg/dl (70-99)
--- NOTE | 2024-07-18 21:00 | PTCARENOTE ---
cared for pt from 1844- 2099- see assessment- report given to next RN
--- NOTE | 2024-07-18 21:00 | PTCARENOTE ---
card for pt from 1844- 2099- see assessment- report given to next RN
--- NOTE | 2024-07-18 21:00 | PTCARENOTE ---
Assumed care at 2100, nursing assessment completed and as documented. Patient agitated, yelling at staff, and uncooperative with all nursing care. Patient removed tele monitor and refused staff to replace along with gown and IV dressing. Attempted
to place gown back on and wrap IV with dressing then patient became irate towards staff. quality assurance monitor final left off at this time. Care ongoing.
[2024-07-18] MEDS: HEPARIN SC ×2 (21:08→21:11)
[2024-07-19] MEDS: NOVOLOG FLEXPEN-LOW RESISTANCE SC ×3 (00:10→13:20)
[2024-07-19 03:20] VITALS: BP 143/59
[2024-07-19] MEDS: ZOSYN 50 IV (05:09)
[2024-07-19 05:17] LABS: Glucose - Point of Care 109 mg/dl (70-99)
[2024-07-19] MEDS: DUONEB 3 ML INH (07:50)
[2024-07-19 07:54] VITALS: BP 167/65
[2024-07-19 08:24] LABS: Glucose - Point of Care 113 mg/dl (70-99)
[2024-07-19 08:27] LABS: Hemoglobin 10.5 g/dL (13.0-18.0); Mean Corp Hgb Conc. 33.9 g/dL (33.0-37.0); Mean Corpuscular Hgb 30.2 pg (27.0-31.0); Mean Corpuscular Volume 89.1 fL (80.0-94.0); Mean Platelet Volume 11.1 fL (7.4-10.4); Platelet Count 252 10^3/uL (130-400); Red Blood Cell Count 3.48 10^6/uL (4.70-6.10); Red Cell Dist. Width 13.5 % (11.5-14.5); White Blood Cell Count 12.3 10^3/uL (4.8-10.8)
[2024-07-19 09:04] LABS: ALT (SGPT) 12 U/L (0-50); AST (SGOT) 20 U/L (17-59); Albumin 3.8 g/dl (3.5-5.0); Alkaline Phosphatase 56 U/L (38-126); Blood Urea Nitrogen 24 mg/dl (9-20); Calcium 8.9 mg/dl (8.4-10.2); Carbon Dioxide 27 mmol/L (22-30); Chloride 106 mmol/L (98-107); Estimated Creatinine Clearance 64 ml/min; Glucose 93 mg/dl (70-99); Potassium 3.4 mmol/L (3.5-5.1); Sodium 146 mmol/L (135-145); Total Bilirubin 0.6 mg/dl (0.2-1.3); Total Protein 6.6 g/dl (6.3-8.2); eGFR > 60.00
[2024-07-19] MEDS: HEPARIN 5000 UNITS SC (09:13)
--- NOTE | 2024-07-19 09:58 | CON.GI ---
Addendum entered and electronically signed by Terrance Day MD 07/19/24 10:51:
I saw and examined the patient.
The SNOWBOARD DESIGNER or PA's note was reviewed and I agree with the note.
Comment: 88-year-old male past medical history of dementia oriented x 1-2 today presenting with aspiration after eating broccoli. On discussion with him, he has chronic dysphagia for the last year with food get stuck in his throat with no issues
with liquids as nonprogressive. He underwent speech pathology evaluation which showed mild to moderate pharyngeal dysphagia, significant esophageal backflow into the pharynx, esophageal sweep demonstrated residue. Patient at high risk for
aspiration both during the swallow and following this well from backflow from the esophagus.
I discussed with the patient as well as his 2 sons Roosevelt and Mamadou. On d/w speech path barium esophagram has high risk of aspiration and they do not recommend which I reviewed with the family. I discussed the option of doing upper endoscopy. Risks,
alternatives, benefits of upper endoscopy discussed including but not limited to risk of bleeding, infection, perforation, increased risk given his age. The sons and patient both do not want invasive procedures given his age and overall clinical
health which is reasonable. We also discussed the possibility of doing esophageal manometry and pH testing as an outpatient although I have concerns about him keeping the probe in. At this time, the sons and patient do not want any further testing
which again is reasonable.
They did ask about medication for reflux which I will prescribe Protonix daily which she can continue upon discharge. Patient did not elicit any heartburn but he could still have an element of reflux.
I discussed with the speech pathologist, primary team. At this time, GI will sign off. Please call with any questions or issues.
Original Note:
Consultation
-
Date/Time Consultation Requested: 07/18/24 @ 15:47
Date/Time Consultation Performed: 07/19/24 @ 10:00
Requesting Provider: Dr. Satish Larson DO
Performing Provider: SAIDA Patel; Dr. Julianna Day
Reason for Consultation: Dysphagia/aspiration
Medical History
Chief Complaint / HPI
Chief Complaint: cough, choking
History of Present Illness:
The patient is an 88-year-old male with a past medical history significant for senile dementia, hypertension, history of alcohol use disorder, type 2 diabetes, BPH, lumbar degenerative disc disease, ambulatory dysfunction, who presented initially to
the emergency room on 07/17 with complaints of coughing and choking episode that happened prior to admission. The patient has dementia, therefore the medical record was utilized for HPI. The patient resides at [facility], and was found to have
an episode of choking after eating broccoli. He did have some distress and was short of breath therefore was brought to the emergency room for further evaluation. He did have some hypoxia in the 80s on room air and was found to have a moist cough
as well that was poorly productive. X-ray imaging initially showed possible pneumonia versus subsegmental atelectasis, he was placed on supplemental oxygen and started on antibiotics with Zosyn to treat for possible aspiration
pneumonitis/aspiration pneumonia. He was evaluated by speech therapy and underwent a VSE which per their report showed mild oral and moderate pharyngeal dysphagia with penetration and aspiration noted during the swallows with thin liquids and
moderately thick liquids. He also had silent aspiration with pur�e textures and was advised strict NPO. A goals of care discussion was advised. Per family GI consult was requested to see if there were any other options. The patient reportedly
had no prior history of dysphagia although he reports that he does have difficulty with swallowing solid foods every now and then. He reports this has been going on for many years. He denies any overt heartburn or any issues with swallowing
liquids. He has no complaints of abdominal pain. He denies any pain in the neck or swelling of the neck. Otherwise history is limited given his dementia. Routine labs on admission showed WBC 14.6, hemoglobin 12.6, platelets 283,000, sodium 143,
potassium 4.2, BUN 18, creatinine 1.0, total bilirubin 0.7, AST 19, ALT 13, alk phos 83. Repeat x-ray on 07/17 showed improvement. He is currently on IDDSI 4 pur�ed diet. He is off oxygen at this time and otherwise hemodynamically stable.
Past Medical History
Past Medical History: HTN, NIDDM and Other (Alcohol use disorder, senile dementia, alcoholic polyneuropathy, BPH, ambulatory dysfunction, lumbar degenerative disc disease, skin cancer)
Past Surgical History: Other (Mohs procedure, ORIF right ankle, lumbar laminectomy x 2)
Social History
Tobacco: Former Smoker
Alcohol: Former
Drug: None
Living: Skilled Nursing
Family History
Family History: Reviewed & Not Pertinent
Allergies / Home Medications
Allergy/AdvReac Type Severity Reaction Status Date / Time
No Known Allergies Allergy Verified 07/16/24 23:38
�Medication �Instructions �Recorded
acetaminophen 500 mg tablet 1,000 mg PO BIDPRN PRN mild pain 07/16/24
(Tylenol Extra Strength)
acetaminophen 500 mg tablet 1,000 mg PO DAILY 07/16/24
(Tylenol Extra Strength)
calcium polycarbophil 625 mg 625 mg PO HS Constipation 07/16/24
tablet (FiberCon)
divalproex 125 mg capsule,delayed 125 mg PO DAILY Seizures 07/16/24
release sprinkle (Depakote
Sprinkles)
divalproex 125 mg capsule,delayed 250 mg PO HS 07/16/24
release sprinkle (Depakote
Sprinkles)
emollient combination no.119 1 applic topical BID b/l le 07/16/24
(Eucerin Advanced Repair topical
cream)
escitalopram oxalate 10 mg tablet 10 mg PO HS Mental Health/Anxiety 07/16/24
(Lexapro)
furosemide 40 mg tablet 40 mg PO DAILY Fluid 07/16/24
Retention/Swelling
glimepiride 2 mg tablet 2 mg PO DAILY Diabetes 07/16/24
lactase 3,000 unit tablet (Lactaid) 3,000 unit PO BID 07/16/24
lidocaine 5 % topical patch 1 patch topical DAILY left shoulder 07/16/24
losartan 50 mg tablet 50 mg PO DAILY Blood Pressure 07/16/24
menthol 0.8 % topical powder (Gold 1 ea topical DAILY upper back rash 07/16/24
Moraes Medicated Body)
povidone-iodine 10 % topical swab 1 applic topical DAILY right lower 07/16/24
(Betadine Swabsticks) ankle
repaglinide 1 mg tablet 3 mg PO BID Diabetes 07/16/24
sennosides 8.6 mg capsule (senna) 8.6 mg PO DAILYPRN PRN constipation 07/16/24
sitagliptin phosphate 50 mg tablet 50 mg PO DAILY Diabetes 07/16/24
(Januvia)
tamsulosin 0.4 mg capsule 0.4 mg PO HS Urinary Issue 07/16/24
zinc oxide-vitamin B5-vit E 11.3% 1 applic topical BIDPRN PRN 07/16/24
topical cream (Balmex Adult Care) buttocks, aletha area/inner thighs
Review of Systems
-
Unable to obtain full review of systems at this time due to: Dementia
Vital Signs
Temp Pulse Resp BP Pulse Ox
98.3 F 43 19 167/65 95
07/19/24 07:54 07/19/24 07:54 07/19/24 07:54 07/19/24 07:54 07/19/24 07:54
Physical Exam
Exam
General: Well Developed, Well Nourished, No Apparent Distress and Other (elderly appearing male)
HEENT: Normocephalic, Anicteric and Atraumatic
GI: Soft, Non Tender, Non Distended and Normal Bowel Sounds
Rectal: Deferred by Provider
Musculoskeletal: No Edema
Skin: Warm, Dry and Other (RLE wound )
Neuro: Awake, Alert and Other (confused, oriented to self and president)
Psych: Calm
Results
WBC 12.3 10^3/uL (4.8-10.8) H 07/19/24 06:48
Hgb 10.5 g/dL (13.0-18.0) L 07/19/24 06:48
Hct 31.0 % (39.0-52.0) L 07/19/24 06:48
MCV 89.1 fL (80.0-94.0) 07/19/24 06:48
Plt Count 252 10^3/uL (130-400) 07/19/24 06:48
Absolute Neuts (auto) 12.6 10^3/uL (1.4-6.5) H 07/16/24 23:44
Sodium 146 mmol/L (135-145) H 07/19/24 06:48
Potassium 3.4 mmol/L (3.5-5.1) L 07/19/24 06:48
Chloride 106 mmol/L (98-107) 07/19/24 06:48
Carbon Dioxide 27 mmol/L (22-30) 07/19/24 06:48
BUN 24 mg/dl (9-20) H 07/19/24 06:48
Creatinine 0.9 mg/dL (0.7-1.3) 07/19/24 06:48
Calcium 8.9 mg/dl (8.4-10.2) 07/19/24 06:48
Total Bilirubin 0.6 mg/dl (0.2-1.3) 07/19/24 06:48
AST 20 U/L (17-59) 07/19/24 06:48
ALT 12 U/L (0-50) 07/19/24 06:48
Alkaline Phosphatase 56 U/L (38-126) 07/19/24 06:48
Diagnostic Image Results:
07/16/24 CXR: IMPRESSION: Suspected minimal bibasilar opacity most likely representing subsegmental atelectasis.
07/17/24 CXR: IMPRESSION: Slightly improved minimal bibasilar opacification most likely representing resolving subsegmental atelectasis.
Prior GI Procedures:
EGD: none on file
Colonoscopy: none on file
Assessment / Plan
-
The patient is an 88-year-old male with a past medical history significant for senile dementia, hypertension, history of alcohol use disorder, type 2 diabetes, BPH, lumbar degenerative disc disease, ambulatory dysfunction, who presented initially to
the emergency room on 07/17 with complaints of coughing and choking episode that happened prior to admission found to have findings consistent with possible aspiration pneumonitis versus aspiration pneumonia, placed on antibiotics. Now with ongoing
difficulty swallowing and concern for aspiration, evaluated by speech therapy/VSE which showed aspiration of all consistencies. Recommended strict n.p.o. and goals of care discussion. We were asked to evaluate to see if there are any other
possible interventions to evaluate for any esophageal component. The patient upon interview admits to intermittent difficulty swallowing with solid foods throughout the years, but no significant dysphagia. At this time he declines further testing.
He does have a history of dementia. He offers no complaints at this time.
Problem list:
-Aspiration pneumonitis/pneumonia
-Acute hypoxemic respiratory failure, improved
-Dysphagia
-Senile dementia
-Leukocytosis
Other pertinent medical history:
-Hypertension
-Type 2 diabetes
-Right lower extremity wound
-BPH
-History of alcohol use disorder with peripheral neuropathy
Recommendations:
-Etiology of dysphagia/aspiration likely multifactorial possibly secondary to underlying esophageal motility disorder versus reflux versus EoE v Schatzki ring v effects from dementia versus other.
---Currently he appears comfortable and has been able to be weaned off of oxygen. He is being treated for pneumonia. The patient declines further testing at this time. He is on IDDSI 4/puree diet.
-Will add PPI once daily to see if this improves his symptoms if there is a reflux component
-To consider EGD pending discussion with the patient's family. Currently they are awaiting a goals of care discussion given his advanced dementia.
-Diet as per speech therapy recommendations
-Aspiration precautions
-To consider outpatient esophageal manometry study given he is high risk for esophagram due to risk of aspiration of barium
-Will discuss plan with Dr. Day and the pt's family
-
-
Thank you for consultation and allowing me to participate in the patient's care. Please call the product safety professional GI physician during the after hours with any questions or concerns.
--- NOTE | 2024-07-19 10:23 | PTCARENOTE ---
Patient will not keep telemetry pack on, pulled out IV and makes frequent attempts to climb OOB. Bad alarm maintained. Re oriented patient, re positioned. Family at bedside.
[2024-07-19] MEDS: PROTONIX 40 MG PO (11:17)
[2024-07-19] MEDS: DUONEB INH ×3 (11:23→20:38)
[2024-07-19 11:55] VITALS: BP 165/67
--- NOTE | 2024-07-19 12:19 | W.PN.HOSP.TC ---
Today's Communication/Plan
-
Continued oral diet and reintroduce antihypertensives. Switch antibiotics to oral Augmentin.
Assessment / Plan
Assessment / Plan
Assessment:
88 male past medical history dementia, hypertension, diabetes presented for evaluation of coughing/choking episode
Plan:
# Aspiration pneumonitis +/- aspiration pneumonia
Potentially aspiration pneumonia
Patient's WBC downtrending but still elevated; afeb and not hypoxic.
Chest x-ray in the emergency department demonstrated bilateral minimal bibasilar opacities, likely representing subsegmental atelectasis
Repeat chest x-ray demonstrated improving bilateral bibasilar opacities likley atx.
Speech recommendations today is for L for pur�ed and thin liquids.
Switch to oral Augmentin for 2 more days and discontinue antibiotics.
#Right lower extremity wound
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
Wound care evaluation
#Benign hypertension
Stable
Reassume oral medication
#Diabetes type 2
A1c 6.2
Cover with sliding scale as needed
#BPH
Stable
Bladder scan protocol
#Senile dementia with mood disturbance
Patient confused not oriented. No agitation this morning.
DVT prophylaxis: Subcu heparin
CODE STATUS: POLST fron NH indicates DNR. With son at bedside, patient states that he would be in favor of intubation if needed - but no CPR in the event of cardiac arrest.
Diet: Modified diet
Anticipated Discharge: 24 - 48 hours
Subjective/Interval History
-
Date of Service: July 19, 2024
Confused.
Says he is trying to go to [facility] in [place].
Didnt know where he is and why he is here.
Smile on face and follow commands but confused.
Objective Data
-
Labs:
Laboratory Results
07/19/24
06:48
WBC 12.3 H
Hgb 10.5 L
Hct 31.0 L
Plt Count 252
Sodium 146 H
Potassium 3.4 L
Chloride 106
Carbon Dioxide 27
BUN 24 H
Creatinine 0.9
Glucose 93
Calcium 8.9
Total Bilirubin 0.6
AST 20
ALT 12
Alkaline Phosphatase 56
Vital Signs:
Vital Signs
Temp Pulse Resp BP Pulse Ox
98.6 F 46 18 165/67 97
07/19/24 11:55 07/19/24 11:55 07/19/24 11:55 07/19/24 11:55 07/19/24 11:55
I&O
07/18/24 07/19/24 07/20/24
06:59 06:59 06:59
Intake Total 210 / 210 50 / 50
Balance 210 / 210 50 / 50
Review of Systems
-
Unable to obtain full review of systems at this time due to: Other (Been)
Physical Exam
-
General: No Apparent Distress
HEENT: Moist Mucous Membranes
Respiratory: Clear to Auscultation (anteriorly) and Non Labored Respirations; Negative Accessory Resp Muscle Use
Cardiac: Regular Rhythm and S1/S2
GI: Soft and Nontender
Neuro: Awake and Alert; Negative Oriented
Psych: Calm and Confused
Data Reviewed
-
Labs: Labs Reviewed by me
[2024-07-19 12:50] LABS: Glucose - Point of Care 126 mg/dl (70-99)
[2024-07-19] MEDS: ZOSYN IV (13:19)
[2024-07-19] MEDS: KCL ELIXIR 40 MEQ PO (13:55)
[2024-07-19] MEDS: COZAAR 50 MG PO (13:56)
[2024-07-19] MEDS: DEPAKOTE SPRINKLE 125 MG PO (13:56)
[2024-07-19 15:12] VITALS: BP 137/54
[2024-07-19 18:03] LABS: Glucose - Point of Care 110 mg/dl (70-99)
[2024-07-19] MEDS: AUGMENTIN 875 MG/125 MG PO ×2 (19:47→19:56)
[2024-07-19] MEDS: HEPARIN SC ×2 (19:47→19:57)
[2024-07-19 19:57] VITALS: BP 160/87
[2024-07-19] MEDS: FLOMAX 0.4 MG PO (22:01)
[2024-07-19] MEDS: LEXAPRO 10 MG PO (22:02)
[2024-07-19] MEDS: DEPAKOTE SPRINKLE 250 MG PO (22:02)
[2024-07-19] MEDS: AUGMENTIN 875 MG/125 MG 1 TABLET PO (22:03)
[2024-07-19 22:14] LABS: Glucose - Point of Care 144 mg/dl (70-99)
[2024-07-19 23:28] VITALS: BP 163/64
[2024-07-20 03:28] VITALS: BP 121/55
[2024-07-20 07:26] LABS: Hematocrit 31.9 % (39.0-52.0); Hemoglobin 10.7 g/dL (13.0-18.0); Mean Corp Hgb Conc. 33.5 g/dL (33.0-37.0); Mean Corpuscular Hgb 29.8 pg (27.0-31.0); Mean Corpuscular Volume 88.9 fL (80.0-94.0); Mean Platelet Volume 10.4 fL (7.4-10.4); Platelet Count 242 10^3/uL (130-400); Red Blood Cell Count 3.59 10^6/uL (4.70-6.10); Red Cell Dist. Width 13.1 % (11.5-14.5); White Blood Cell Count 12.2 10^3/uL (4.8-10.8)
[2024-07-20 07:55] VITALS: BP 177/65
[2024-07-20] MEDS: DUONEB 3 ML INH ×3 (08:12→15:10)
[2024-07-20] MEDS: DEPAKOTE SPRINKLE 125 MG PO (08:16)
[2024-07-20] MEDS: PROTONIX 40 MG PO (08:16)
[2024-07-20] MEDS: AUGMENTIN 875 MG/125 MG 1 TABLET PO ×2 (08:16→20:59)
[2024-07-20] MEDS: COZAAR 50 MG PO (08:16)
[2024-07-20] MEDS: HEPARIN 5000 UNITS SC (08:17)
--- NOTE | 2024-07-20 08:30 | PTCARENOTE ---
Patient OOB to chair and walker with max assist x2. Patient only able to take two steps to chair. Patient feeding self with tray set up. Chair alarm maintained.
[2024-07-20 08:49] LABS: Glucose - Point of Care 114 mg/dl (70-99)
[2024-07-20] MEDS: NOVOLOG FLEXPEN-LOW RESISTANCE SC ×2 (09:03→13:58)
--- NOTE | 2024-07-20 12:15 | PTCARENOTE ---
Patient assisted back to bed with assist x3 due to patient scooting himself out of chair. Patient was combative and yelling. Patient scratched open right leg wound. Wound cleaned and a dressing was applied. Son at bedside. Patient is resting
comfortably now.
[2024-07-20 13:31] LABS: Glucose - Point of Care 137 mg/dl (70-99)
--- NOTE | 2024-07-20 14:29 | W.PN.HOSP.TC ---
Today's Communication/Plan
-
Hospice eval
DC planning
Assessment / Plan
Assessment / Plan
Assessment:
88 male past medical history dementia, hypertension, diabetes presented for evaluation of coughing/choking episode
Plan:
# Aspiration pneumonitis +/- aspiration pneumonia
Potentially aspiration pneumonia
Patient's WBC downtrending ; afeb and not hypoxic.
Chest x-ray in the emergency department demonstrated bilateral minimal bibasilar opacities, likely representing subsegmental atelectasis
Repeat chest x-ray demonstrated improving bilateral bibasilar opacities likley atx.
Speech recommendations - pur�ed and thin liquids.
Switch to oral Augmentin for 1 more days and discontinue antibiotics.
#Right lower extremity wound
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
Wound care evaluation
#Benign hypertension
Stable
Reassume oral medication
#Diabetes type 2
A1c 6.2
Cover with sliding scale as needed
#BPH
Stable
Bladder scan protocol
#Senile dementia with mood disturbance
Patient confused not oriented. No agitation this morning.
DW son at bedside - they want to explore hospice care.
DVT prophylaxis: Subcu heparin
CODE STATUS: POLST fron NH indicates DNR. With son at bedside, patient states that he would be in favor of intubation if needed - but no CPR in the event of cardiac arrest.
Diet: Modified diet
Anticipated Discharge: Within 24 hours
Subjective/Interval History
-
Date of Service: July 20, 2024
pleasantly confused.
Son at bedside-he thinks he is probably close to his baseline regarding cognition. No agitation noted.
Son is aware about the aspiration risk. He is handling pur�ed diet okay .Son wants speech therapist to evaluate for more solid diet ;they want more comfort foods at this point than restricted diet.They are leaning towards hospice.
Objective Data
-
Labs:
Laboratory Results
07/20/24
06:50
WBC 12.2 H
Hgb 10.7 L
Hct 31.9 L
Plt Count 242
Vital Signs:
Vital Signs
Temp Pulse Resp BP Pulse Ox
97.5 F 65 20 177/65 96
07/20/24 07:55 07/20/24 11:19 07/20/24 11:19 07/20/24 07:55 07/20/24 11:19
I&O
07/19/24 07/20/24 07/21/24
06:59 06:59 06:59
Intake Total 50 / 50 710 / 710
Balance 50 / 50 710 / 710
Review of Systems
-
Unable to obtain full review of systems at this time due to: Dementia
Physical Exam
-
General: Comfortable
Respiratory: Non Labored Respirations; Negative Accessory Resp Muscle Use
Cardiac: Regular Rhythm and S1/S2
Neuro: Awake, Alert and Oriented (self and person)
Data Reviewed
-
Labs: Labs Reviewed by me
[2024-07-20 15:55] VITALS: BP 160/66
[2024-07-20 17:56] LABS: Glucose - Point of Care 106 mg/dl (70-99)
[2024-07-20] MEDS: NOVOLOG FLEXPEN-LOW RESISTANCE 3 UNITS SC (18:00)
[2024-07-20] MEDS: DUONEB INH (20:36)
[2024-07-20] MEDS: HEPARIN SC ×2 (20:59→21:13)
[2024-07-20] MEDS: DEPAKOTE SPRINKLE 250 MG PO (21:01)
[2024-07-20] MEDS: LEXAPRO 10 MG PO (21:01)
[2024-07-20] MEDS: FLOMAX 0.4 MG PO (21:01)
[2024-07-20 21:49] LABS: Glucose - Point of Care 163 mg/dl (70-99)
[2024-07-20 23:00] VITALS: BP 123/93
[2024-07-21 07:00] VITALS: BP 163/71
[2024-07-21] MEDS: DUONEB INH ×2 (07:26→11:28)
[2024-07-21 07:53] LABS: Glucose - Point of Care 124 mg/dl (70-99)
[2024-07-21] MEDS: PROTONIX PO ×2 (07:54→08:15)
[2024-07-21] MEDS: NOVOLOG FLEXPEN-LOW RESISTANCE SC ×3 (07:54→17:46)
[2024-07-21] MEDS: DEPAKOTE SPRINKLE 125 MG PO (07:54)
[2024-07-21] MEDS: AUGMENTIN 875 MG/125 MG PO ×3 (07:54→21:05)
[2024-07-21] MEDS: COZAAR 50 MG PO (07:55)
[2024-07-21] MEDS: HEPARIN SC ×3 (07:56→20:54)
--- NOTE | 2024-07-21 09:26 | W.PN.HOSP.TC ---
Addendum entered and electronically signed by Gamal Cardona MD 07/21/24 16:24:
Seen and examined by me independently in collaboration with the medical lab technician Christ.
Lab data and imaging data reviewed.
Addendum as below :
Remains pleasantly confused to irritable on attempts to give meds or work with him.
No significant overnight events.
As planned yesterday with son , hospice consulted.
Start dc planning .
Original Note:
Today's Communication/Plan
-
Continue comfort feeds
Hospice evaluation
Discontinue antibiotics
Assessment / Plan
Assessment / Plan
Assessment:
88 male past medical history dementia, hypertension, diabetes presented for evaluation of coughing/choking episode
Plan:
# Aspiration pneumonitis +/- aspiration pneumonia
Potentially aspiration pneumonia
Patient's WBC stable, but still elevated; has been approximately 12 last few days
Afebrile and not hypoxic
Chest x-ray in the emergency department demonstrated bilateral minimal bibasilar opacities, likely representing subsegmental atelectasis
Repeat chest x-ray demonstrated improving bilateral bibasilar opacities likley atelectasis
Speech recommendations - pur�ed and thin liquids.
Speech following
Patient was switched to oral Augmentin, will receive last dose today
Goals of care discussion to be had with family
#Right lower extremity wound
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
Wound care evaluation
#Benign hypertension
Stable, however currently refusing oral meds
#Diabetes type 2
A1c 6.2
Cover with sliding scale as needed
#BPH
Stable
Bladder scan protocol
#Senile dementia with mood disturbance
Patient confused not oriented.
Patient agitated and combative with staff today and last night
Patient refusing p.o. meds, spitting at nursing
Patient refusing blood draws
#Comfort feeds
Conversation was had with family to start patient on comfort feeds last Sunday
Per family will evaluate for hospice
Case management�hospice consulted
DVT prophylaxis: Subcu heparin
CODE STATUS: POLST fron NH indicates DNR. With son at bedside, patient states that he would be in favor of intubation if needed - but no CPR in the event of cardiac arrest.
Diet: Modified diet
Anticipated Discharge: 24 - 48 hours
Subjective/Interval History
-
Date of Service: July 21, 2024
Patient extremely agitated this morning and overnight
Patient currently refusing all p.o. meds, spitting them out at nursing and fighting with nursing
Patient refusing all lab draws
Currently not requiring restraints or sedatives, will reevaluate if needed later
Objective Data
-
Labs:
Laboratory Results
07/21/24
07:59
Sodium Pending
Potassium Pending
Chloride Pending
Carbon Dioxide Pending
BUN Pending
Creatinine Pending
Glucose Pending
Calcium Pending
Vital Signs:
Vital Signs
Temp Pulse Resp BP Pulse Ox
98.3 F 51 16 163/71 97
07/21/24 07:00 07/21/24 07:55 07/21/24 07:00 07/21/24 07:55 07/21/24 07:00
I&O
07/20/24 07/21/24 07/22/24
06:59 06:59 06:59
Intake Total 710 / 710 960 / 960
Balance 710 / 710 960 / 960
Review of Systems
-
Unable to obtain full review of systems at this time due to: Dementia
Physical Exam
-
General: Well Developed, Comfortable and Appears in Distress
Respiratory: Other (Cannot auscultate due to poor respiratory effort)
Cardiac: Other (Could not examine due to combativeness)
Neuro: Awake; Negative Alert, Oriented or AO x 3
Psych: Agitated and Apparent Dementia; Negative Intact Judgement/Insight
Data Reviewed
-
Labs: Labs Reviewed by me and Discussed with Physician
--- NOTE | 2024-07-21 11:12 | CM ---
Addendum entered by Chelsie Rich 07/21/24 16:10:
Per [facility] bed available now tomorrow. Patient son aware of plan and per [facility] patient family now planning to return to SNF with reassessment of Hospice when he is at [facility]. patient will be private pay at this time per holden.
Addendum entered by Chelsie Rich 07/21/24 12:14:
CM spoke with admissions at [facility] and per [facility] no beds available today. CM spoke with hospice and they will reach out to patient son to discuss patient care. Patient son plan is for patient to return to [facility] and then
transition to hospice at that time. Per [facility]en they have contracts with [facility] hospice, [facility] for hospice care.
Original Note:
Patient seen at bedside, sleeping. Patient for hospice consult per physician. CM left for [facility] at [facility] and for patient son, radha. CM also reached out to [facility] hospice to discuss evaluation/hospice with patient family. CM will continue
to follow for discharge planning needs.
Plan; [facility]; SNF pending assessment/bed availability.
[2024-07-21 12:09] LABS: Glucose - Point of Care 119 mg/dl (70-99)
--- NOTE | 2024-07-21 13:07 | HOSPNOTE ---
Addendum entered by Lucero Patel RN 07/21/24 15:36:
Son did call me back. The plan is to go to rehab at [facility] and then will sign onto hospice services. The son and family would like to try rehab. The son stated he has my direct number and will call when hospice is needed.
Original Note:
Called the son Roosevelt and had to leave a message. I wanted to explain hospice and the philosophy. Once I speak with son I will update note.
[2024-07-21 14:53] LABS: Blood Urea Nitrogen 15 mg/dl (9-20); Calcium 9.2 mg/dl (8.4-10.2); Carbon Dioxide 27 mmol/L (22-30); Chloride 105 mmol/L (98-107); Estimated Creatinine Clearance 82 ml/min; Glucose 120 mg/dl (70-99); Sodium 146 mmol/L (135-145); eGFR > 60.00
[2024-07-21 15:00] VITALS: BP 151/87
[2024-07-21] MEDS: DEPAKOTE SPRINKLE 250 MG PO (21:10)
[2024-07-21] MEDS: FLOMAX 0.4 MG PO (21:11)
[2024-07-21] MEDS: LEXAPRO 10 MG PO (21:12)
[2024-07-21 23:58] VITALS: BP 155/57
[2024-07-22 07:30] VITALS: BP 136/64
[2024-07-22] MEDS: DEPAKOTE SPRINKLE 125 MG PO (08:49)
[2024-07-22] MEDS: COZAAR 50 MG PO (08:49)
[2024-07-22] MEDS: AUGMENTIN 875 MG/125 MG 1 TABLET PO (08:54)
[2024-07-22] MEDS: PROTONIX 40 MG PO (08:54)
[2024-07-22 09:33] VITALS: BP 150/75; PULSE 60; O2SAT 92
[2024-07-22] MEDS: HEPARIN SC (09:42)
[2024-07-22] MEDS: NOVOLOG FLEXPEN-LOW RESISTANCE SC ×2 (09:42→13:28)
--- NOTE | 2024-07-22 10:32 | W.PN.HOSP.TC ---
Addendum entered and electronically signed by Gamal Cardona MD 07/24/24 08:33:
Hypokalemia, resolved
Addendum entered and electronically signed by Gamal Cardona MD 07/22/24 15:57:
Seen and examined by me independently in collaboration with the medical care administrator.
Lab data and imaging data reviewed.
Addendum as below :
Patient remains pleasantly confused. Tolerating modified diet but started coughing on it. No acute respiratory distress evident.
Family has discussed with hospice and the plan is to initiate hospice when he is discharged back to his facility.
With Goals of care is comfort and hospice patient will be discharged back to [facility].
With his current situation of dysphagia and inconsistent oral intake do not see the point of putting him on oral hypoglycemic agents and as well as Lasix. But we will continue with Depakote and antihypertensives for now.
Total time of discharge 32 minutes.
Discussed with case management.
Left message to [place] his son on his voicemail.
Portions of this chart may have been created with voice recognition software. Occasional wrong word or 'sound alike' substitutions may have occurred due to the inherent limitations of voice recognition software.
Original Note:
Today's Communication/Plan
-
Discharge to senior care facility
Continue comfort measures
Assessment / Plan
Assessment / Plan
Assessment:
88 male past medical history dementia, hypertension, diabetes presented for evaluation of coughing/choking episode
Plan:
# Aspiration pneumonitis +/- aspiration pneumonia
Potentially aspiration pneumonia
Patient's WBC stable, but still elevated; has been approximately 12 last few days
Stopped checking labs due to comfort measures, per family request
Afebrile and not hypoxic
Chest x-ray in the emergency department demonstrated bilateral minimal bibasilar opacities, likely representing subsegmental atelectasis
Repeat chest x-ray demonstrated improving bilateral bibasilar opacities likley atelectasis
Speech recommendations - pur�ed and thin liquids.
Speech following
Patient has completed his course of oral Augmentin.
Goals of care discussion to be had with family on discharge to senior care facility
#Right lower extremity wound
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
Wound care evaluation
#Benign hypertension
Stable, however refusing oral meds
#Diabetes type 2
A1c 6.2
Cover with sliding scale as needed
Accu-Cheks and insulin discontinued per family request due to comfort measures
#BPH
Stable
Bladder scan protocol
#Senile dementia with mood disturbance
Patient confused not oriented.
Patient agitated and combative with staff today and last night
Patient refusing p.o. meds, spitting at nursing
Patient refusing blood draws
#Comfort feeds
Conversation was had with family to start patient on comfort feeds last Sunday
Per family will evaluate for hospice
Case management�hospice consulted
DVT prophylaxis: Subcu heparin
CODE STATUS: POLST fron [facility] indicates DNR. With son at bedside, patient states that he would be in favor of intubation if needed - but no CPR in the event of cardiac arrest.
Diet: Modified diet
Anticipated Discharge: Today
Subjective/Interval History
-
Date of Service: July 22, 2024
Nurse reports no episodes of agitation overnight
Objective Data
-
Vital Signs:
Vital Signs
Temp Pulse Resp BP Pulse Ox
97.4 F 67 20 136/67 96
07/22/24 07:30 07/22/24 08:49 07/22/24 07:30 07/22/24 08:49 07/22/24 07:30
I&O
07/21/24 07/22/24 07/23/24
06:59 06:59 06:59
Intake Total 960 / 960
Balance 960 / 960
Review of Systems
-
Unable to obtain full review of systems at this time due to: Dementia
Physical Exam
-
General: Well Developed, Comfortable and Appears Chronically Ill
Respiratory: Clear to Auscultation
Cardiac: Regular Rhythm and S1/S2
GI: Soft, Nontender, Nondistended and Normal Bowel Sounds
Skin: Warm and Dry
Neuro: Awake; Negative Alert, Oriented or AO x 3
Psych: Confused; Negative Intact Judgement/Insight
Data Reviewed
-
Labs: Labs Reviewed by me and Discussed with Physician
--- NOTE | 2024-07-22 10:57 | CM ---
Patient for transfer to [facility] today, pending COVID testing. Please call report to [phone]/fax [phone]. Per Maria E at [facility] admissions patient will need covid test and physician updated. Patient will need IMM to be completed and
CM will call patient son to review. CM will continue to follow for discharge planning needs.
Plan;transfer to [facility] pending COVID test status and physician assessment.
[2024-07-22 12:49] LABS: COVID-19 Antigen Negative (Negative)
--- NOTE | 2024-07-22 13:36 | PN.CDI ---
CDI
- -
CDI:
Physician Documentation Request
Admit Date: 07/17/24 02:39
Dear Doctor Brendan,
Patient admitted for pneumonia.
07/19 Potassium level: 3.4
07/19 Potassium chloride 40 meq PO administered
Based on the above, could you clarify in the progress notes, the appropriate diagnosis, if significant, that supports the above abnormalities and additional evaluation, monitoring and/or treatment rendered:
Hypokalemia, resolved
Abnormal lab value insignificant
Other
Use of terms such as suspected, likely, concern for, or probable (associated with a specific diagnosis that is being evaluated, monitored, or treated as if it exists) are acceptable and can be coded in the inpatient setting, when documented at the
time of discharge.
Thank you,
Tracy Sawyer RN, BSN
CDI Specialist
Available via [employer] text
Please use your independent medical judgment in providing your response.
--- NOTE | 2024-07-22 14:55 | W.DCSUMMARY ---
Discharge Summary
Discharge Data
Date of Admission: 07/17/24
Date of Discharge: 07/22/24
-
Pending Results: No
Hospital Course
Discharging Physician : Brendan Larson
Disposition : Home on hospice
Primary care physician : Dr. Henderson
Principal Discharge diagnosis : Aspiration pneumonitis
Chronic Discharge diagnosis : Right lower extremity wound, benign hypertension, insulin requiring diabetes type 2, benign prostatic hyperplasia, senile dementia with mood disturbance
Hospital Course : 88-year-old male past medical history of senile dementia with mood disorder presented to the ED for a coughing/choking episode that happened. Per staff patient was coughing and choking on food at his intermediate facility
[facility]. Patient was apparently short of breath and in the emergency department he was mildly hypoxemic with SpO2 into the 80s on room air. He also had a moist nonproductive cough. In the emergency department patient received a chest x-ray,
which showed minimal by basilar opacity, likely representing subsegmental atelectasis. Patient was admitted to telemetry for further management and workup. During the first day of his stay the patient was noted to be aggressive and combative with
nursing staff, cursing and fighting with him while they attempted suctioning. Patient required to be upgraded to IMU. Pulmonology was consulted for further management and recommendations were given. Eventually patient was able to get a VSE study
by speech and swallow. This study demonstrated that the patient was aspirating and was not able to tolerate anything by mouth. These findings were relayed to the son who is a speech therapist and after a discussion it was decided to start the
father on comfort feeds. Patient was started on level 4 pur�ed solids and level 0 thin liquid comfort feeding. Risks of aspiration, choking and potential were discussed with family and they agreed to proceed with comfort feeds. Hospice
nurse was consulted and spoke to the patient and family while they are inpatient. Patient was not on hospice during time of his stay and remained not on hospice at the time of discharge. Hospice conversation will be reopened with the family once
he is at his intermediate facility. Patient also had a course of oral Augmentin which she completed during his stay. During the end of his stay patient had many medications and interventions discontinued due to comfort. We stopped checking his
labs and his blood sugars, stop doing daily blood draws and on discharge we discontinued his diabetes and Lasix medications. We also discontinued many of his cream-based medications. Patient will be discharged to [facility] and family will open
up hospice discussion once he is there. If patient decides to not proceed with hospice he will follow-up with his primary care physician within 1 week of discharge from intermediate facility.
Important imaging findings :
07/16/2024 chest x-ray, impression:
Suspected minimal bibasilar opacity most likely representing subsegmental atelectasis.
07/17/2024 chest x-ray, impression:
Slightly improved minimal bibasilar opacification most likely representing resolving subsegmental atelectasis.
Procedure findings :
07/18/2024 VSE, speech modified barium swallow.
Findings: Brief imaging of the thoracic esophagus demonstrates moderate esophageal retention.
Thin liquid barium by spoon: Airway aspiration
Thin liquid barium by cup: Airway aspiration
Honey consistency barium by spoon: Airway aspiration
Barium pudding by spoon (half teaspoon): Airway aspiration
Impression: Airway aspiration with all consistencies presented Detailed findings as described above.
Discharge Plan
-
Patient Disposition: Home with Hospice
Discharge Diagnosis/Procedures: aspiration pneumonitis, right lower extremity wound, Dementia with behavioral disturbances
Condition: Fair
Diet: Other diet
Additional Diets: level 4 purre- solids. Level 0 thin liquids. Comfort feeds
Activity: As tolerated
Driving Restrictions: No driving
Bathing Restrictions: None
Other Services: Hospice
Activity Restrictions/Additional Instructions:
Please follow up with your primary care physician within one week of discharge from your SNF
Referrals:
Rebecca Henderson MD [Family Provider] - in less than 1 week
Additional Discharge Medication Instructions: We stopped your diabetes medications and Lasix. We also discontinued all your cream based medications
Prescriptions:
Continued
losartan 50 mg Tablet
50 mg PO DAILY
acetaminophen [Tylenol Extra Strength] 500 mg Tablet
1,000 mg PO BIDPRN PRN (Reason: mild pain)
acetaminophen [Tylenol Extra Strength] 500 mg Tablet
1,000 mg PO DAILY
tamsulosin 0.4 mg Capsule
0.4 mg PO HS
calcium polycarbophil [FiberCon] 625 mg Tablet
625 mg PO HS
divalproex [Depakote Sprinkles] 125 mg Capsule, Delayed Rel Sprinkle
125 mg PO DAILY
divalproex [Depakote Sprinkles] 125 mg Capsule, Delayed Rel Sprinkle
250 mg PO HS
escitalopram oxalate [Lexapro] 10 mg Tablet
10 mg PO HS
senna 8.6 mg Capsule
8.6 mg PO DAILYPRN PRN (Reason: constipation)
Discontinued
furosemide 40 mg Tablet
40 mg PO DAILY
glimepiride [Amaryl] 2 mg Tablet
2 mg PO DAILY
lidocaine 5 % Adhesive Patch,Medicated
1 patch TOPICAL DAILY
povidone-iodine [Betadine Swabsticks] 10 % Swab
1 applic TOPICAL DAILY
lactase [Lactaid] 3,000 unit Tablet
3,000 unit PO BID
repaglinide [Prandin] 1 mg Tablet
3 mg PO BID
Januvia 50 mg Tablet
50 mg PO DAILY
Balmex Adult Care 11.3 % Cream
1 applic TOPICAL BIDPRN PRN (Reason: buttocks, aletha area/inner thighs)
Gold Moraes Medicated Body 0.8 % Powder
1 ea TOPICAL DAILY
Eucerin Advanced Repair Cream
1 applic TOPICAL BID
Discharge Orders:
Discharge Patient (As Directed); Ordered 07/22/24
Ordered By: Satish Larson
Discharge Date and Time
Print Language: SLOVENIAN
[2024-07-22 15:00] VITALS: BP 143/75
== END 2024-07-22 15:23 | disposition hospice, home (50) | DRG 177 ==
LOC: 3 WEST ACU 02:39
PROVIDERS: ADMITTING PHYSICIAN Hospitalist; ATTENDING PHYSICIAN Internal Medicine; CONSULT PHYSICIAN Internal Medicine Gastroenterology; EMERGENCY PHYSICIAN Emergency Medicine; FAMILY PHYSICIAN Internal Medicine Geriatric Medicine; OTHER PHYSICIAN Internal Medicine
DX: J69.0 Pneumonitis due to inhalation of food and vomit (principal); J96.01 Acute respiratory failure with hypoxia; F03.93 Unspecified dementia, unspecified severity, with mood disturbance; J98.11 Atelectasis; Z87.891 Personal history of nicotine dependence; I10 Essential (primary) hypertension; E11.8 Type 2 diabetes mellitus with unspecified complications; N40.0 Benign prostatic hyperplasia without lower urinary tract symptoms; Z51.5 Encounter for palliative care; E87.6 Hypokalemia
CPT/HCPCS: 71045; 74230; 80048; 80053; 82962; 83036; 83605; 83735; 85025; 85027; 87040; 87070; 87811; 92526; 92610; 92611; 93005; 94640; 94760; 96365; 96367; 97163; 97167; 97530; 97535; 99285